=== PATIENT | female | born 1965 | race Caucasian/White ===

== ENCOUNTER → 2017-03-09 | Outpatient (CLI) | payer OTHER ==
[~2017-03-09] MED LIST: COQ-10100 MG; VITAMIN D-40400 UNIT PO; VITAMIN E400 UNI5 PO
== END | disposition disaster alternative care site (69) ==
LOC: GRAD 11:30
DX: R10.9 Unspecified abdominal pain (principal); K63.89 Other specified diseases of intestine

== ENCOUNTER → 2017-04-05 | Day surgery (SDC) | payer OTHER ==
[~2017-04-05] VITALS: Ht 170.2 cm; Wt 63.3 kg
== END ==
LOC: GPOC 04-04 14:00 → GEND 08:58
PROC: 0DB88ZX Excision of Small Intestine, Via Natural or Artificial Opening Endoscopic, Diagnostic (ICD-10-PCS; principal; 2017-04-05)
PROC: 0DB68ZX Excision of Stomach, Via Natural or Artificial Opening Endoscopic, Diagnostic (ICD-10-PCS; 2017-04-05)
PROC: 0DJD8ZZ Inspection of Lower Intestinal Tract, Via Natural or Artificial Opening Endoscopic (ICD-10-PCS; 2017-04-05)
DX: K21.0 Gastro-esophageal reflux disease with esophagitis (principal); K64.4 Residual hemorrhoidal skin tags; J30.9 Allergic rhinitis, unspecified; Z98.890 Other specified postprocedural states; G43.909 Migraine, unspecified, not intractable, without status migrainosus; Z79.52 Long term (current) use of systemic steroids; Z79.899 Other long term (current) drug therapy; Z88.2 Allergy status to sulfonamides
CPT/HCPCS: J2001; J7030